=== PATIENT | female | born 1980 | race African-American/Black ===

== ENCOUNTER 2021-06-04 13:33 | Outpatient (CLI) | payer OTHER ==
[~2021-06-04 13:33] MED LIST: SYNTHROID200 MCG
== END 2021-06-04 13:51 | disposition home or self-care (01) ==
LOC: MAMO-SONO 13:33
PROVIDERS: ATTEND Obstetrics & Gynecology
DX: N63.0 Unspecified lump in unspecified breast (principal); N64.59 Other signs and symptoms in breast; N64.9 Disorder of breast, unspecified

== ENCOUNTER 2023-02-03 08:44 | Outpatient (CLI) | payer OTHER | END 2023-02-03 08:55 | disposition home or self-care (01) | LOC: MAMO-SONO 08:44 | PROVIDERS: ATTEND Internal Medicine Sports Medicine | DX: Z12.31 Encounter for screening mammogram for malignant neoplasm of breast (principal) ==

== ENCOUNTER 2024-01-11 10:52 | Outpatient (CLI) | payer OTHER ==
[2024-01-11 11:52] LABS: PH,URINE 5.5 (5.0-8.0); URINE APPEARANCE Clear; URINE BILIRRUBIN Negative (NEGATIVE); URINE BLOOD Large; URINE COLOR Yellow; URINE GLUCOSE Negative (NEGATIVE); URINE KETONE Negative (NEGATIVE); URINE LEUKOCYTE Negative; URINE NITRATE Negative; URINE PROTEIN Negative (NEGATIVE); URINE UROBILINOGEN 0.2 E.U./dl
[2024-01-11 11:55] LABS: URINE BACTERIA 61.7 uL (0.0-1933); URINE EPITHELIAL CELLS 7.5 uL (0.0-38.8); URINE RBC 541.4 uL (0.0-20.8); URINE WBC 2.7 uL (0.0-23.2)
[2024-01-11 12:00] LABS: HEMATOCRIT 41.6 % (36.0-45.00); HEMOGLOBIN 13.9 g/dL (12.0-15.00); MEAN CELL VOLUME 95.9 fL (80.00-100.00); MEAN CORPUSCULAR HEMOGLOBIN 32.2 pg (27.00-32.0); MEAN CORPUSCULAR HGB CONC 33.5 g/dl (32.0-36.0); PLATELET COUNT 229 K/uL (150-450); RED BLOOD COUNT 4.34 M/uL (4.00-6.00)
[2024-01-11 12:51] LABS: ALBUMIN 3.8 gm/dL (3.4-5.0); BILIRUBIN TOTAL 0.66 mg/dL (0.3-1.2); CALCIUM 8.9 mg/dL (8.5-10.1); CHOL HDL RATIO 4.5 (0-5.0); CREATININE SERUM 0.71 mg/dL (0.55-1.02); GFR 90.72; GLOBULINA 3.4 G/DL (2.4-3.5); POTASSIUM 4.02 mEq/L (3.5-5.1); T4 FREE 1.33 NG/ML (0.76-1.46); TOTAL PROTEIN 7.2 gm/dL (6.4-8.2); TSH 1.19 uIU/mL (0.358-3.74)
== END 2024-01-11 10:53 | disposition home or self-care (01) ==
LOC: LAB 10:52
PROVIDERS: ATTEND Internal Medicine Sports Medicine
DX: D64.9 Anemia, unspecified (principal); E11.9 Type 2 diabetes mellitus without complications; E78.2 Mixed hyperlipidemia; I10 Essential (primary) hypertension; E03.8 Other specified hypothyroidism; E55.9 Vitamin D deficiency, unspecified